=== PATIENT | male | born 2000 | race African-American/Black ===

== ENCOUNTER 2019-08-08 17:40 | Emergency (ER) | payer MEDICAID, SELFPAY ==
--- NOTE | ~2019-08-08 | XR_ITS ---
EXAMINATION: XR wrist LT min 3V DATE: 08/08/2019 17:58 INDICATION: Generalized left wrist pain post fall TECHNIQUE: Posteroanterior, ulnar deviation, oblique, and lateral views of the left wrist were obtain ed. COMPARISON: none FINDINGS: Comminuted intra-articular fracture of the distal left radius with dorsal impaction resulting in 5 de grees dorsal tilt of the distal articular surface. There is a couple lucent fracture gap is measuring up to 1 mm at the distal articular surface without evident incongruity. Small minimally displaced av ulsion fracture of the tip of the ulnar styloid process. Normal joint spaces at the left wrist and vi sualized hand. IMPRESSION: 1. Mild dorsal impaction likely comminuted intra-articular fracture of the distal left radius. 2. Minimal displacement of an avulsion fracture of the ulnar styloid process. Reviewed, dictated and finalized at location A. O [employer] IMPRESSION: 1. Mild dorsal impaction likely comminuted intra-articular fracture of the dist al left radius. 2. Minimal displacement of an avulsion fracture of the ulnar styloid process.
[2019-08-08 17:41] VITALS: RESP 16
[2019-08-08 17:47] VITALS: BP 120/80; PULSE 80; RESP 20; TEMP 36.6; O2SAT 99
--- NOTE | 2019-08-08 18:11 | ED.GENADULT ---
HPI - General Adult General Chief complaint: Extremity Injury, Upper Stated complaint: left wrist injury Time Seen by Provider: 08/08/19 17:44 Source: patient Mode of arrival: ambulatory Limitations: no limitations History of Present Illness HPI narrative: Patient is a 19-year-old male who presents to emergency department for evaluation of left wrist deformity that occurred after falling while playing basketball fell on an outstretched wrist. Patient notes swelling and tenderness moderate aching pain worse with activity and movement. Patient is not take anything for his symptoms patient denies other injuries Related Data Allergies Allergy/AdvReac Type Severity Reaction Status Date / Time No Known Allergies Allergy Verified 08/08/19 17:43 Review of Systems Review of Systems: Narrative: CONSTITUTIONAL: Denies fever, chills, or sweats. SKIN: Positive for bruising and swelling MUSCULOSKELETAL: Positive for left wrist pain NEUROLOGIC: Denies numbness PMFSH Social History Social History (Updated 08/08/19 @ 18:12 by Brandon Zamudio PA-C) Smoking status: Never smoker Gender identity (if verbalized by the patient): Male Exam Narrative: Exam Narrative: GENERAL: Well-appearing, well-nourished, and in no acute distress. HEAD: Normocephalic, atraumatic. EYES: PERRLA and EOMI. EXTREMITIES: Tenderness swelling with mild deformity of the left wrist joint SKIN: Warm, dry, no rash. NEURO: No focal deficits. Alert and oriented x3. Neurovascularly intact. Capillary refill less than 2 seconds PSYCH: Normal mood and affect. Course Course Emergency Course: Patient in the room aware of case findings treatment plan and diagnosis Consultations Consultation #1: Discussed case with orthopedic surgery who will follow patient in clinic Date: 08/08/19 Vital Signs Vital signs: Vital Signs Respiratory Rate 16 08/08/19 17:41 Temperature 98 F 08/08/19 17:47 Pulse Rate 80 08/08/19 17:47 Respiratory Rate 20 08/08/19 17:47 Blood Pressure 120/80 08/08/19 17:47 Pulse Oximetry 99 08/08/19 17:47 Procedures Orthopedic Splinting/Casting Injury #1: Splinting/Casting Date: 08/08/19 Side: left Upper Extremity Injury Location: wrist Upper Extremity Immobilizer: sling/shoulder immobilizer and volar splint OCL: volar Pre-Procedure Neuro Vascular Exam: normal Post-Procedure Neuro Vascular Exam: normal Medical Decision Making MDM Narrative Medical decision making narrative: Patients injury or pain is consistent with musculoskeletal etiology. No signs of neurological or vascular compromise on exam. Compartments and tisues are soft without signs of compartment syndrome. Pain is felt appropriate for further evaluation on an outpatient basis. Vital Signs Vital Signs: Vital Signs Respiratory Rate 16 08/08/19 17:41 Temperature 98 F 08/08/19 17:47 Pulse Rate 80 08/08/19 17:47 Respiratory Rate 20 08/08/19 17:47 Blood Pressure 120/80 08/08/19 17:47 Pulse Oximetry 99 08/08/19 17:47 Discharge Plan Discharge Clinical Impression: Left wrist fracture Patient Disposition: Home, Self-Care Condition: Stable Instructions: Antibiotic Form, Wrist Fracture in Adults (ED), How to Use a Sling (ED) Additional Instructions: Follow-up with orthopedic surgery by phone first thing tomorrow to set up for reevaluation Wear splint with rest ice and elevation follow patient education sheets Only take medications as directed Follow patient education sheets Prescriptions: New ibuprofen 600 mg tablet 600 mg PO TID PRN (Reason: fever or pain) Qty: 7 RF: 0 Follow-up/Referrals: Clark Senior MD [Physician] - UNKNOWN,DOCTOR [Primary Care Provider] - Stand Alone Forms: Work/School Release IP
[2019-08-08 18:51] VITALS: BP 122/74; PULSE 90; RESP 20; TEMP 36.7; O2SAT 99
--- NOTE | 2019-08-14 13:40 | PC.NURSE ---
LATE ENTRY This note is being entered to document information to the patient's record. The following information was omitted on 08/08/19, by CRISTINA Espana. VRB for short arm splint was given by EDP, splint was placed per order.
== END 2019-08-08 18:52 | disposition home or self-care (01) ==
LOC: ANHED 18:26
PROVIDERS: Emergency Provider Emergency Medicine
DX: S52.572A Other intraarticular fracture of lower end of left radius, initial encounter for closed fracture (principal); S52.612A Displaced fracture of left ulna styloid process, initial encounter for closed fracture; W19.XXXA Unspecified fall, initial encounter; Y93.67 Activity, basketball
CPT/HCPCS: 29125; 73110; 99284